=== PATIENT | female | born 1990 ===

== ENCOUNTER 2017-09-30 17:08 | Emergency (ER) | payer MEDICAID ==
[2017-09-30 17:29] VITALS: TEMP 98.9; BMI 35.6
--- NOTE | 2017-09-30 18:12 | ED PDOC ---
Arrival/HPI - General Chief Complaint: Back Pain Time Seen by Provider: 09/30/17 18:11 Historian: Patient - History of Present Illness Narrative History of Present Illness (Text): 09/30/17 18:12 This 26 yo female who denies pmh, presents to this ED c/o left lower back pain x 5 days. Patient admits similar back pain in the past. Patient described pain as achy, radiates to left buttock. Pain worsen with movement, and it improves by remaining still. Patient denies trauma, denies illegal IV drug use. Denies skin rash, weakness, paresthesias, GI/ incontinence, saddle anaesthesia, urinary retention, or abnormal gait. Time/Duration: < week Context: Home Past Medical History - Provider Review Nursing Documentation Reviewed: Yes - Infectious Disease Hx of Infectious Diseases: None - Reproductive Menopause: No - Psychiatric Hx Substance Use: No - Anesthesia Hx Anesthesia: No Family/Social History - Physician Review Nursing Documentation Reviewed: Yes Family/Social History: Other (noncontributory) Smoking Status: Unknown If Ever Smoked Hx Alcohol Use: No Hx Substance Use: No Allergies/Home Meds Allergies/Adverse Reactions: Allergies No Known Allergies Allergy (Verified 09/30/17 18:02) Review of Systems - Review of Systems Constitutional: Normal. absent: Fatigue, Weight Change, Fevers Eyes: Normal ENT: Normal Respiratory: Normal. absent: SOB, Cough Cardiovascular: Normal Gastrointestinal: Normal Genitourinary Female: Normal Musculoskeletal: Back Pain Skin: Normal. absent: Rash Neurological: Normal. absent: Headache, Dizziness, Focal Weakness, Gait Changes , Speech Changes, Disequilibrium, Seizure Endocrine: Normal Hemo/Lymphatic: Normal Psychiatric: Normal Physical Exam Vital Signs Temp Pulse Resp BP Pulse Ox 09/30/17 19:16 77 16 119/65 98 09/30/17 17:22 98.9 F 81 18 129/82 97 Temperature: Afebrile Blood Pressure: Normal Pulse: Regular Respiratory Rate: Normal Appearance: Positive for: Well-Appearing, Non-Toxic, Comfortable Pain Distress: None Mental Status: Positive for: Alert and Oriented X 3 - Systems Exam Head: Present: Atraumatic, Normocephalic Pupils: Present: PERRL Extroacular Muscles: Present: EOMI Conjunctiva: Present: Normal Mouth: Present: Moist Mucous Membranes Neck: Present: Normal Range of Motion Respiratory/Chest: Present: Clear to Auscultation, Good Air Exchange. No: Respiratory Distress, Accessory Muscle Use, Wheezes, Decreased Breath Sounds, Rales, Tender to Palpation Cardiovascular: Present: Regular Rate and Rhythm, Normal S1, S2. No: Murmurs Abdomen: No: Tenderness Upper Extremity: Present: Normal Inspection, Normal ROM Lower Extremity: Present: Normal Inspection, Normal ROM Neurological: Present: GCS=15, CN II-XII Intact, Speech Normal, Motor Func Grossly Intact, Normal Sensory Function, Normal Cerebellar Funct, Gait Normal, Memory Normal Skin: Present: Warm, Dry, Normal Color. No: Rashes Psychiatric: Present: Alert, Oriented x 3, Normal Insight, Normal Concentration Medical Decision Making ED Course and Treatment: 09/30/17 19:28 Re-evaluation. Patient feels better. Discussed results and plan with patient who expresses understanding. All questions answered and there is agreement with the plan to discharge home with instructions. Patient stable for discharge. Return if symptoms persist or worsen. Return to emergency if pain worsen. Re-evaluation Time: 19:28 Reassessment Condition: Re-examined, Improved - Lab Interpretations Lab Results: Lab Results 09/30/17 17:29: Urine Color Yellow, Urine Appearance Clear, Urine pH 6.0, Ur Specific [place] 1.020, Urine Protein Negative, Urine Glucose (UA) Negative, Urine Ketones Negative, Urine Blood Trace-intact H, Urine Nitrate Negative, Urine Bilirubin Negative, Urine Urobilinogen 0.2, Ur Leukocyte Esterase Negative , Urine RBC 2 - 5, Urine WBC Negative - Medication Orders Current Medication Orders: Discontinued Medications Ketorolac Tromethamine (Toradol) 30 mg IM STAT STA Stop: 09/30/17 18:13 Last Admin: 09/30/17 18:41 Dose: 30 mg [facility] Pain Assessment Document 09/30/17 18:41 EQ (Rec: 09/30/17 18:42 EQ [id number]) Pain Reassessment Is this a pain reassessment? No Sleep Is patient sleeping during reassessment? No IM Administration Charges Document 09/30/17 18:41 EQ (Rec: 09/30/17 18:42 EQ [id number]) Charges for Administration # of IM Administrations 1 Tramadol HCl (Ultram) 50 mg PO STAT STA Stop: 09/30/17 18:13 Last Admin: 09/30/17 18:42 Dose: 50 mg UMAIR Pain Assessment Document 09/30/17 18:42 EQ (Rec: 09/30/17 18:42 EQ [id number]) Pain Reassessment Is this a pain reassessment? No Sleep Is patient sleeping during reassessment? No Presence of Pain Presence of Pain Yes Disposition/Present on Arrival - Present on Arrival Any Indicators Present on Arrival: No History of DVT/PE: No History of Uncontrolled Diabetes: No Urinary Catheter: No History of Decub. Ulcer: No History Surgical Site Infection Following: None - Disposition Have Diagnosis and Disposition been Completed?: Yes Diagnosis: Back pain Disposition: HOME/ ROUTINE Disposition Time: 19:28 Patient Plan: Discharge Patient Problems: Current Active Problems Problem Status Onset Back pain Acute Condition: IMPROVED Discharge Instructions (ExitCare): Low Back Pain (DC) Additional Instructions: Call private doctor for follow up visit in 1-2 days. Take medication as instructed with food. Do not drive or operate for at least 12 hours if you take Tramadol or Valium. Return to emergency if pain worsen. Prescriptions: diaZEpam [Valium] 5 mg PO DAILY #6 tab Naproxen 500 mg PO BID PRN #14 tablet PRN Reason: Pain, Severe (8-10) traMADol [Ultram] 50 mg PO Q6 PRN #15 tab PRN Reason: Pain, Severe (8-10) Referrals: [facility] [Outside] - Follow up with primary [facility] [Outside] - Follow up with primary Forms: [facility] (Somali), WORK NOTE
[2017-09-30 19:00] LABS: URINE APPEARANCE CLEAR (CLEAR); URINE BILIRUBIN NEGATIVE (NEGATIVE); URINE BLOOD TRACE-INTACT (NEGATIVE); URINE GLUCOSE (UA) NEGATIVE (NEGATIVE); URINE LEUKOCYTE ESTERASE NEGATIVE Leu/uL (NEGATIVE); URINE PROTEIN NEGATIVE mg/dL (<30 mg/dL); URINE UROBILINOGEN 0.2 E.U./dL (<1 E.U./dL)
[2017-09-30 19:01] LABS: URINE COLOR YELLOW (YELLOW)
[2017-09-30 19:03] LABS: URINE WBC NEGATIVE /hpf (0-6)
[2017-09-30 19:18] VITALS: BP 119/65; PULSE 77; RESP 16; O2SAT 98
== END 2017-09-30 19:41 | disposition home or self-care (01) ==
LOC: ED 17:08
DX: M54.5 Low back pain (principal)
CPT/HCPCS: 81001; 81025; 96372; 99283; J1885